=== PATIENT | female | born 1965 | race Caucasian/White ===

== ENCOUNTER 2018-09-03 06:02 | Day surgery (SDC) | payer BC ==
[~2018-09-03] VITALS: Ht 162.6 cm; Wt 125.0 kg
[~2018-09-03 06:02] MED LIST: ALBU8.5H8 INH; ASPI-496 PO; BECL8.7A7 PO; CELE200C PO; CHOL2000 PO; HYDR-3240 PO; HYDR-3622 PO; LEVO100T5 PO; LOSA1TAB19 PO; MULT-658 PO; NAPR220C2 PO; PREN1TAB27 PO
[2018-09-03] MEDS ORDERED: LACTATED RINGERS 1,000 ML IV SCH (06:19)
[2018-09-03 06:31] VITALS: BP 137/97
[2018-09-03] MEDS ORDERED: PROPOFOL 10 MG/ML, 20ML ONE (08:21)
[2018-09-03] MEDS ORDERED: ACETAMINOPHEN 325 MG TABLET PO PRN (09:00)
[2018-09-03] MEDS ORDERED: FENTANYL PF 100 MCG/2ML IV PRN (09:00)
[2018-09-03] MEDS ORDERED: ONDANSETRON ODT 8 MG PO PRN (09:00)
[2018-09-03] MEDS ORDERED: MIDAZOLAM 1 MG/ML, 2ML IV PRN (09:00)
[2018-09-03] MEDS ORDERED: ONDANSETRON 2MG/ML, 2ML IV PRN (09:00)
[2018-09-03] MEDS ORDERED: EPHEDRINE 50 MG/ML, 1ML IM PRN (09:00)
[2018-09-03] MEDS ORDERED: DIPHENHYDRAMINE 50 MG/ML, 1ML IVPush PRN (09:00)
[2018-09-03] MEDS ORDERED: hydrALAzine 20 MG/ML, 1ML IV PRN (09:30)
[2018-09-03] MEDS: LABETALOL 5 MG/ML SYRINGE IV PRN ×2 (09:54→10:18)
== END 2018-09-03 11:30 | disposition home or self-care (01) ==
LOC: OUT 06:02
PROVIDERS: ATTEND Internal Medicine Gastroenterology
DX: D12.3 Benign neoplasm of transverse colon (principal); K57.30 Diverticulosis of large intestine without perforation or abscess without bleeding; K64.8 Other hemorrhoids
CPT/HCPCS: 45385; 88305; J2704; J7120